=== PATIENT | male | born 1950 | race Hispanic/Latino ===

== ENCOUNTER 2021-06-06 09:41 | Day surgery (SDC) | payer OTHER ==
[2021-06-05 08:31] LABS: BASOPHILS % (AUTO) 0.6 % (0.0-5.0); EOSINOPHILS % (AUTO) 4.5 % (0.0-8.0); HEMATOCRIT 43.3 % (42-54); LYMPHOCYTES % (AUTO) 25.2 % (21.0-51.0); MEAN CORPUSCULAR HEMOGLOBIN 33.2 pg (27.0-33.0); MEAN CORPUSCULAR HGB CONC 35.3 g/dL (32.0-36.0); MEAN CORPUSCULAR VOLUME 93.9 fL (79-99); MONOCYTES % (AUTO) 9.3 % (3.0-13.0); NEUTROPHILS % (AUTO) 60.1 % (40.0-77.0); PLATELET COUNT (AUTO) 232 K/uL (130-400); RED BLOOD CELL COUNT(AUTO) 4.61 MIL/uL (4.50-6.20); RED CELL DISTRIBUTION WIDTH 11.8 % (11.0-15.5); WHITE BLOOD COUNT (AUTO) 6.5 K/uL (4.8-10.8)
[2021-06-05 08:38] LABS: POTASSIUM 4.5 mmol/L (3.5-5.1)
[2021-06-05 09:06] LABS: INR 1.1 (0.85-1.15); PROTHROMBIN TIME 11.9 SEC (9.6-11.6)
[2021-06-05 10:55] VITALS: BP 168/92
[2021-06-06] VITALS (15 sets, daily range): BP systolic 127–165; BP diastolic 64–91
[~2021-06-06] VITALS: Ht 167.6 cm; Wt 89.4 kg
[~2021-06-06 09:41] MED LIST: LOSA100T58 PO; METO50TA18 PO; ROSU20TA31 PO; TRAZ150T79 PO
[2021-06-06] MEDS ORDERED: LACTATED RINGERS 1000ML 1,000 ML IV ONE (09:58)
[2021-06-06] MEDS: CEFAZOLIN SODIUM 1 GM VIAL ONE ×2 (10:33→12:00)
[2021-06-06] MEDS ORDERED: LIDOCAINE PF 100MG/5ML (2%) SYRINGE 5ML ONE (11:57)
[2021-06-06] MEDS ORDERED: MIDAZOLAM HCL 1 MG/ML 2ML VIAL ONE (11:57)
[2021-06-06] MEDS ORDERED: PROPOFOL 10 MG/ML 20ML VIAL IV ONE (11:57)
[2021-06-06] MEDS ORDERED: FENTANYL CITRATE PF 50 MCG/1 ML 2ML VIAL ONE (11:58)
[2021-06-06] MEDS ORDERED: ONDANSETRON 4MG INJ ONE (12:06)
[2021-06-06] MEDS ORDERED: DEXAMETHASONE SOD PHOSPHATE 10MG/ML 1ML VIAL ONE (12:06)
[2021-06-06] MEDS ORDERED: GLYCOPYRROLATE 1 MG/5 ML SYRINGE ONE (12:22)
[2021-06-06] MEDS ORDERED: KETOROLAC 30MG VIAL (30MG/ML) ONE (12:35)
[2021-06-06] MEDS ORDERED: LIDOCAINE HCL 1% 20 ML VIAL ONE (12:35)
[2021-06-06] MEDS ORDERED: BUPIVACAINE/PF 0.5% 30ML VIAL ONE (12:35)
[2021-06-06] MEDS ORDERED: LIDOCAINE HCL 5% OINT 50GM 1 APPL/GM TUBE TP ONE (12:48)
[2021-06-06] MEDS ORDERED: LIDOCAINE HCL 2% JELLY 5 ML ONE (12:49)
[2021-06-06] MEDS ORDERED: MEPERIDINE-PF 25 MG/ML SYG ONE (13:47)
== END 2021-06-06 15:00 | disposition home or self-care (01) ==
LOC: DAH 09:41
PROVIDERS: ATTEND Surgery
DX: K64.2 Third degree hemorrhoids (principal); K60.3 Anal fistula; Z20.822 Contact with and (suspected) exposure to COVID-19; I10 Essential (primary) hypertension; G47.00 Insomnia, unspecified; K21.9 Gastro-esophageal reflux disease without esophagitis; G47.33 Obstructive sleep apnea (adult) (pediatric); E78.00 Pure hypercholesterolemia, unspecified; E66.9 Obesity, unspecified; E78.5 Hyperlipidemia, unspecified; Z87.891 Personal history of nicotine dependence; Z98.890 Other specified postprocedural states; Z79.899 Other long term (current) drug therapy; Z80.0 Family history of malignant neoplasm of digestive organs; Z82.49 Family history of ischemic heart disease and other diseases of the circulatory system; Z79.01 Long term (current) use of anticoagulants; Z68.31 Body mass index [BMI] 31.0-31.9, adult
CPT/HCPCS: 36415; 46250; 71045; 80048; 85025; 85610; 87635; A4215; A4221; A4222; A4223; A4600; A4606; A4663; A6260; C9803; J0690; J1100; J1885; J2001; J2175; J2250; J2405; J2704; J3010; J3490 ×2; J7120 ×2; 93005